=== PATIENT | male | born 2000 | race Asian ===

== ENCOUNTER 2025-01-11 15:13 | Emergency (ER) | payer OTHER ==
[~2025-01-11] VITALS: Ht 167.6 cm; Wt 59.1 kg
[2025-01-11] MEDS: ACETAMINOPHEN 500 MG TAB PO ONE (15:48)
[2025-01-11] MEDS: PERCOCET 5MG/325MG TAB PO ONE (17:35)
[2025-01-11 18:10] VITALS: BP 111/74; TEMP 97.2; O2SAT 97
[2025-01-11] MEDS: OXYCODONE/APAP 5MG/325MG(HOME DOSE PACK) PO ONE (18:11)
== END 2025-01-11 18:19 | disposition home or self-care (01) ==
LOC: M ED 15:13
DX: S82.421A Displaced transverse fracture of shaft of right fibula, initial encounter for closed fracture (principal); R22.41 Localized swelling, mass and lump, right lower limb; X50.0XXA Overexertion from strenuous movement or load, initial encounter; F17.200 Nicotine dependence, unspecified, uncomplicated; Y92.410 Unspecified street and highway as the place of occurrence of the external cause; Y93.89 Activity, other specified; Y99.9 Unspecified external cause status